=== PATIENT | female | born 2000 | race Hispanic/Latino ===

== ENCOUNTER → 2020-05-05 | Outpatient (CLI) | payer MEDICAID | LOC: YCFC.O 12:05 | PROVIDERS: ATTEND Family Medicine | DX: Z34.91 Encounter for supervision of normal pregnancy, unspecified, first trimester (principal); N89.8 Other specified noninflammatory disorders of vagina; Z3A.00 Weeks of gestation of pregnancy not specified ==

== ENCOUNTER → 2020-05-19 | Outpatient (CLI) | payer MEDICAID | LOC: YCFC.O 16:15 | PROVIDERS: ATTEND Family Medicine | DX: O20.0 Threatened abortion (principal) ==

== ENCOUNTER → 2020-05-19 | Outpatient (CLI) | payer MEDICAID ==
--- NOTE | 2020-05-19 12:01 | US ---
EXAM DESCRIPTION: OB ,Early (0-14wks): Ultrasound. CLINICAL HISTORY: 19 years Female first trimester pain and vaginal bleeding. Obstetrical history unknown. LMP February 24 EGA 12 weeks and 0 days. PABLO December 01. COMPARISON: None. TECHNIQUE: Endovaginal scanning: [place]rosco-scale and Doppler modes. FINDINGS: Uterus: 7.6 x 6.1 x 4.2 cm with estimated volume 101.7 mL. Echogenic endometrium 9.5 mm. Uterus is anteverted.. Gestational sac: Small sac versus fluid in the fundus, with possible contents. AFV: Not well seen. pole: Not seen. Yolk sac: Not seen. heart tones: Not detected. Subchorionic hemorrhage: None. Cul-de-sac: Moderate amount of fluid. Comments: Echogenic objects or debris in the gestational sac/endometrium. Right ovary 2.9 x 2.2 x 1.5 cm. 5.0 mL. Normal waveform and color Doppler vascularity. Small follicles; no dominant cyst.. No adnexal mass or free fluid. Left ovary 3.2 x 2.0 x 1.9 cm. 6.3 mL. Normal waveform and color Doppler vascularity. Small follicles; no dominant cyst.. No adnexal mass or free fluid. IMPRESSION: 1. Uterus is anteverted. Fluid versus early gestational sac versus involuting gestational sac and debris surrounded by endometrium with decidual reaction. No pole was seen. Correlate with serial beta hCG measurements, and if increasing, recommend repeat pelvic ultrasound in one week interval. 2. Mild to moderate fluid in the cul-de-sac. Bilateral ovaries with follicles and no dominant cyst or solid mass. Normal vascularity. CRITICAL COMMUNICATION: The critical value was communicated directly by Dr. Carrasco via phone call, with Dr. Deysi Moyer, at approximately 1030 hours, on May 19, 2020. Electronically signed by: Mitchell Carrasco MD 05/19/2020 11:59 AM [facility]
== END ==
LOC: US 08:20
PROVIDERS: ATTEND Family Medicine
DX: Z34.91 Encounter for supervision of normal pregnancy, unspecified, first trimester (principal); O34.531 Maternal care for retroversion of gravid uterus, first trimester; N85.8 Other specified noninflammatory disorders of uterus; Z3A.00 Weeks of gestation of pregnancy not specified

== ENCOUNTER → 2020-05-22 | Outpatient (CLI) | payer MEDICAID | LOC: YCFC.O 08:26 | PROVIDERS: ATTEND Family Medicine | DX: O20.0 Threatened abortion (principal) ==

== ENCOUNTER → 2020-05-25 | Outpatient (CLI) | payer MEDICAID | LOC: YCFC.O 08:08 | PROVIDERS: ATTEND Family Medicine | DX: O03.9 Complete or unspecified spontaneous abortion without complication (principal); N96 Recurrent pregnancy loss ==

== ENCOUNTER → 2020-06-18 | Outpatient (CLI) | payer MEDICAID | LOC: YCFC.O 17:47 | PROVIDERS: ATTEND Family Medicine | DX: O03.9 Complete or unspecified spontaneous abortion without complication (principal) ==